=== PATIENT | female | born 1950 | race Caucasian/White ===

== ENCOUNTER 2019-03-18 10:10 | Outpatient (CLI) | payer MEDICARE, SELFPAY ==
[2019-03-18 07:52] VITALS: BP 147/78; PULSE 74; RESP 18; TEMP 36.4; O2SAT 100
--- NOTE | 2019-03-18 08:26 | PDOC.PAIN ---
Pain Clinic Procedure Note Procedure Note Procedure Note: Cervical Epidural Steroid Injection Pre-operative diagnosis: cervical spondylosis with cervical radiculopathy Post-operative diagnosis: same as above LAURYN GOMEZ has been referred to the [facility] for interlaminar cervical epidural steroid injection. COMMENTS: Patient was interviewed and the medical record reviewed. There were no medical, pharmacologic, radiographic or other structural contraindications to attempting fluoroscopically guided epidural steroid injection. Risks and expected side effects as well as potential benefit of the procedure were reviewed and voiced concerns addressed. The printed consent form was signed and witnessed. Standard time-out procedure was performed. The patient was placed in the prone position on the fluoroscopy table and automated blood pressure cuff and pulse oximeter applied. The skin entry point for entering the epidural space by a midline C7-T1 interlaminar approach was identified under fluoroscopy and marked. Following thorough Chlorhexadine preparation of the skin and draping and 1% lidocaine infiltration of the skin entry point and subcutaneous tissues, an 17 gauge Tuohy needle was placed under fluoroscopic guidance and with loss of resistance technique into the epidural space. Upon needle placement and loss of resistance there were no paresthesiae or return of blood or CSF through the needle. 1ml of Omnipaque 240 were injected with clear epidural spread in the A/P, oblique views. Then a 19 gauge Radioopque catheter was threaded to C5 level, directed towards the right side. Then 10mg of preservative-free Dexamethasone with 1ml sterile normal saline were injected through the needle with no unusual discomfort expressed. The needle was removed without difficulty. A bandage was placed. Vital signs were stable throughout the procedure and were as recorded in the documentation flowsheet by the nursing staff. If given, dosages of intravenous drugs for anxiolysis and analgesia were documented in MAR. Follow up plans and appointments were discussed. Post procedure instruction was given as documented in nursing documentation and having met discharge criteria and was discharged from the [facility]. COMMENTS: patient received 1mg of IV versed for this procedure. No discomfort expressed by patient and she tolerated procedure well. [facility] CC: Leanna Packer
[2019-03-18] MEDS: Lactated Ringers 1,000 ML 80 ML IV (08:39)
[2019-03-18] MEDS: Midazolam 2 MG/2 ML VIAL IVP (08:39)
[2019-03-18 08:56] VITALS: BP 129/80; PULSE 73; RESP 12; O2SAT 100
[2019-03-18] MEDS: Dexamethasone Sod. Phos./Pres-Free 10 MG/ML VIAL IJ (08:57)
[2019-03-18] MEDS: Omnipaque 240 MG/ML 50 ML BTL IJ (08:57)
--- NOTE | 2019-03-18 09:49 | DI.RAD_ITS ---
EXAM: XR PAIN [facility] CERVICAL SP 2V CLINICAL HISTORY: Dx: Cervical Radiculopathy, CERVICAL EPIDURAL STEROID INJECTION. TECHNIQUE: Fluoroscopy was provided for the referring physician for guidance with performing injecti on procedure. COMPARISON: No exams were available for comparison FINDINGS: Please see procedure note for details. FLUORO TIME: 0.7 min
== END 2019-03-18 10:30 ==
PROVIDERS: PCP Legal Medicine; Visit Provider Internal Medicine
DX: M47.22 Other spondylosis with radiculopathy, cervical region (principal)
CPT/HCPCS: 62321; 72040; J2250; Q9967